=== PATIENT | female | born 1940 | race Caucasian/White ===

== ENCOUNTER 2017-04-15 13:43 | Inpatient (IN) | payer MEDICARE ==
[~2017-04-15] VITALS: Ht 167.6 cm; Wt 81.2 kg
--- NOTE | ~2017-04-15 | S ---
[facility] [place] [address] SURGICAL PATH RPT PROCEDURE Name: NANI CHO Room #: 436-P DIS IN M.R.#: [id number] Admission: 04/15/17 Date of : 42 Discharge: 04/18/17 Report #: [id number] Path Case #: [id number] PATHOLOGY REPORT COLLECTION DATE: 04/18/2017 RECEIVED DATE: 04/18/2017 SUBMITTING PHYS: Dr. Praveen Tyler OTHER PHYS: Dr. Dali Sevilla SPECIMEN(S) RECEIVED: A.Bx colitis descending colon B.Bx rectum colitis * * * * * * * * * * * * FINAL DIAGNOSIS: A. Large intestinal mucosa, colitis descending colon, endoscopic biopsy: - Moderate active colitis in all fragments sampled. - Negative for dysplasia or malignancy. B. Large intestinal mucosa, rectum colitis, endoscopic biopsy: - Moderate active colitis in all fragments sampled. - Negative for dysplasia or malignancy. COMMENT: Examination shows a markedly expanded lamina propria with surface epithelial inflammation, as well as cryptitis. Viral inclusions, parasitic organisms, or granulomata are not identified. There are no architectural abnormalities present as well. The differential diagnosis includes inflammatory bowel disease, especially ulcerative colitis, as well as acute diverticulitis. Please correlate clinically and follow up as indicated. (IUV:mml; 04/19/2017) PATHOLOGIST: Neela Sosa M.D. REPORT ELECTRONICALLY SIGNED BY: Neela Sosa M.D. DATE/TIME: 04/19/2017 16:59 * * * * * * * * * * * * GROSS PATHOLOGY: A. Received in formalin labeled "LOURDES Alvarado colitis descending colon," are 3 segments of loya soft tissue measuring 1.0 x 0.5 x 0.3 cm in aggregate dimensions and ranging from 0.3 to 0.4 cm in maximum dimension. The specimen is submitted entirely in cassette A1. B. Received in formalin labeled "LOURDES Alvarado rectum colitis," are 4 segments of loya soft tissue measuring 1.3 x 0.6 x 0.[address] [address] SURGICAL PATH RPT PROCEDURE Name: NANI CHO Room #: 436-P [facility] IN [facility].#: [id number] Admission: 04/15/17 Date of : 42 Discharge: 04/18/17 Report #: [id number] Path Case #: [id number] aggregate dimensions and ranging from 0.3 to 0.5 cm in maximum dimension. The specimen is submitted entirely in cassette B1. (TSD; 04/18/2017) CLINICAL HISTORY: Pre-OP DX: Colitis, abdominal pain Post-OP DX: Colitis INITIAL CPT CODE(S): A; 22516 B; 14022 Professional services performed by [facility] at [address] , [place] [address] Technical services performed by [facility] at [address] [place] [address], [address], [place] [address]. [facility] [address] [address] PHONE: [phone] DIRECTOR: Helio Conklin M.D. * * * END OF REPORT * * *
--- NOTE | ~2017-04-15 | P ---
[facility] [place] [address] PROCEDURE REPORT Name: NANI CHO Room #: 436-P [facility].#: [id number] Admission: 04/15/17 Attend Phys: Chaparro Dalal MD Discharge: 04/18/17 Date of : 42 Report #: [id number] THIS REPORT FOR: //name// CC: Chaparro Sevilla MD DATE OF SERVICE: 04/18/2017 PROCEDURE PERFORMED: Flexible sigmoidoscopy with biopsies. HISTORY OF PRESENT ILLNESS: The patient is a 76-year-old female who was admitted on 04/15/2017 for abdominal pain and diarrhea. A CT scan of the abdomen and pelvis was performed on admission, which showed a moderate amount of stool in the proximal colon. Diffuse moderate edema involving the distal transverse colon, splenic flexure, descending colon and entire sigmoid colon. The appearance suggested diffuse colitis. Stool studies have been obtained and are pending at this time. The patient is on antibiotics. DESCRIPTION OF PROCEDURE: The risks and benefits of the procedure were explained to the patient, those risks including but not limited to bleeding, perforation, the risk of sedation. She understood these risks and gave informed consent. Sedation was given using propofol per anesthesia. Next, a digital rectal exam was initially performed, which was normal. Next using a standard Fujinon colonoscope, the scope was placed in the patient's anus and advanced under direct vision to the descending colon area at 90 cm, at which point a large amount of solid stool was noted. I was unable to pass the scope beyond this point because of the poor prep. The scope was then slowly withdrawn. There was a mild colitis noted in the descending colon. Biopsies were obtained. No evidence of ulcerations or bleeding. A few scattered diverticula were noted in the sigmoid colon, also a mild colitis in the rectum. Biopsies obtained. The scope was then withdrawn and the procedure terminated. The patient tolerated the procedure well. IMPRESSION: 1. Colitis involving the left colon. Prep was poor above the descending colon, unable to advance the scope into the transverse colon due to poor prep. 2. Sigmoid diverticulosis. RECOMMENDATIONS: Await biopsy and stools studies. [facility] [address] [place] [address] PROCEDURE REPORT Name: NANI CHO Room #: 436-P [facility] IN M.R.#: [id number] Admission: 04/15/17 Attend Phys: Chaparro Dalal MD Discharge: 04/18/17 Date of : 42 Report #: [id number] Thank you for allowing me to participate in her care. <ELECTRONICALLY SIGNED> By: Praveen Tyler MD 04/22/17 0818 1220 1652 Praveen Tyler MD /nt
[2017-04-15 13:44] VITALS: BP 147/78
[2017-04-15 14:17] LABS: HEMATOCRIT 36.4 % (37.0-47.0); HEMOGLOBIN 11.9 gm/dL (12.0-15.0); MCH 28.4 pg (26.0-34.0); MCHC 32.8 g/dL (28.0-37.0); MCV 86.7 fL (80.0-100.0); PLATELET COUNT 323 thou/uL (150-400); RBC 4.19 mil/uL (4.20-5.00); WBC 18.2 thou/uL (4.0-11.0)
[2017-04-15 14:18] LABS: MANUAL DIFF YES
[2017-04-15 14:25] LABS: CALCIUM 9.6 mg/dL (8.5-10.1); CREATININE 0.5 mg/dL (0.6-1.0)
[2017-04-15 14:30] LABS: ALBUMIN 3.6 g/dL (3.4-5.0); TOTAL BILIRUBIN 0.4 mg/dL (<0.1-1.0); TOTAL PROTEIN 6.9 g/dL (6.4-8.2)
[2017-04-15 14:49] LABS: ABSOLUTE NEUTROPHILS 15.1 thou/uL (1.4-8.2); TOTAL CELL COUNT 100
[2017-04-15 14:51] LABS: URINE BILIRUBIN NEGATIVE (Negative); URINE BLOOD NEGATIVE (Negative); URINE COLOR YELLOW; URINE GLUCOSE-RANDOM* NEGATIVE (Negative); URINE KETONES NEGATIVE (Negative); URINE LEUKOCYTES-REFLEX TRACE (Negative); URINE PROTEIN (DIPSTICK) NEGATIVE (Negative); URINE SPECIFIC GRAVITY <= 1.005 (1.003-1.035); URINE UROBILINOGEN 0.2 E.U./dl (0.2-1.0)
[2017-04-15 17:41] VITALS: BP 149/72
[2017-04-15 18:42] VITALS: BP 142/67
[2017-04-15 20:12] VITALS: BP 128/71
[2017-04-16 03:20] VITALS: BP 121/56
[2017-04-16 03:56] LABS: HEMATOCRIT 33.7 % (37.0-47.0); HEMOGLOBIN 11.1 gm/dL (12.0-15.0); MCH 28.7 pg (26.0-34.0); MCHC 32.9 g/dL (28.0-37.0); MCV 87.1 fL (80.0-100.0); RBC 3.87 mil/uL (4.20-5.00); RDW 16.3 % (10.5-14.5); WBC 13.1 thou/uL (4.0-11.0)
[2017-04-16 04:09] LABS: CALCIUM 8.8 mg/dL (8.5-10.1); CREATININE 0.5 mg/dL (0.6-1.0); POTASSIUM 3.9 mmol/L (3.5-5.1)
[2017-04-16 08:00] VITALS: BP 118/42
[2017-04-16 16:00] VITALS: BP 117/60
[2017-04-16 19:46] VITALS: BP 118/54
[2017-04-17 03:24] VITALS: BP 130/82
[2017-04-17 03:43] LABS: ABSOLUTE NEUTROPHILS 5.6 thou/uL (1.4-8.2); BASOPHILS 0.5 % (0.0-2.0); EOSINOPHILS 4.3 % (0.0-3.0); HEMATOCRIT 30.9 % (37.0-47.0); HEMOGLOBIN 10.1 gm/dL (12.0-15.0); LYMPHOCYTES 14.8 % (24.0-44.0); MANUAL DIFF NO; MCH 28.5 pg (26.0-34.0); MCHC 32.7 g/dL (28.0-37.0); MCV 87.2 fL (80.0-100.0); MONOCYTES 11.5 % (1.0-8.0); PLATELET COUNT 252 thou/uL (150-400); POLYS 68.9 % (36.0-66.0); RBC 3.55 mil/uL (4.20-5.00); RDW 16.2 % (10.5-14.5); WBC 8.2 thou/uL (4.0-11.0)
[2017-04-17 03:56] LABS: CALCIUM 8.5 mg/dL (8.5-10.1); CREATININE 0.4 mg/dL (0.6-1.0); POTASSIUM 3.7 mmol/L (3.5-5.1)
[2017-04-17 07:23] VITALS: BP 156/68
[2017-04-17 08:00] VITALS: BP 156/68
[2017-04-17 16:00] VITALS: BP 137/72
[2017-04-17 21:20] VITALS: BP 148/76
[2017-04-18 05:07] LABS: ABSOLUTE NEUTROPHILS 6.2 thou/uL (1.4-8.2); BASOPHILS 0.8 % (0.0-2.0); EOSINOPHILS 4.6 % (0.0-3.0); HEMATOCRIT 33.2 % (37.0-47.0); HEMOGLOBIN 10.8 gm/dL (12.0-15.0); LYMPHOCYTES 13.5 % (24.0-44.0); MCH 28.4 pg (26.0-34.0); MCHC 32.4 g/dL (28.0-37.0); MCV 87.8 fL (80.0-100.0); MONOCYTES 10.9 % (1.0-8.0); PLATELET COUNT 262 thou/uL (150-400); POLYS 70.2 % (36.0-66.0); RBC 3.79 mil/uL (4.20-5.00); WBC 8.8 thou/uL (4.0-11.0)
[2017-04-18 05:08] VITALS: BP 138/74
[2017-04-18 05:10] LABS: CALCIUM 9.1 mg/dL (8.5-10.1); CREATININE 0.4 mg/dL (0.6-1.0); POTASSIUM 3.8 mmol/L (3.5-5.1)
[2017-04-18 05:11] LABS: MANUAL DIFF NO
[2017-04-18 08:00] VITALS: BP 125/84
[2017-04-18] MEDS ORDERED: FLAGYL500 MG PO (13:54)
[2017-04-18] MEDS ORDERED: CIPRO500 MG PO (13:54)
[2017-04-18 15:10] VITALS: BP 125/84
== END 2017-04-18 16:45 | disposition home or self-care (01) | DRG 871 ==
LOC: ER 13:43 → EROBS 16:46 → 4S 16:46 → ENTRNSPT 04-18 16:17 → 4S 04-18 16:45
PROVIDERS: Hospitalist; Internal Medicine Endocrinology, Diabetes & Metabolism; Physician Assistant
PROC: 0DBM8ZX Excision of Descending Colon, Via Natural or Artificial Opening Endoscopic, Diagnostic (ICD-10-PCS; principal; 2017-04-18)
PROC: 0DBP8ZX Excision of Rectum, Via Natural or Artificial Opening Endoscopic, Diagnostic (ICD-10-PCS; principal; 2017-04-18)
DX: A41.9 Sepsis, unspecified organism (principal); K57.31 Diverticulosis of large intestine without perforation or abscess with bleeding; K52.9 Noninfective gastroenteritis and colitis, unspecified; I10 Essential (primary) hypertension; E78.00 Pure hypercholesterolemia, unspecified; I48.91 Unspecified atrial fibrillation; J44.9 Chronic obstructive pulmonary disease, unspecified; E78.5 Hyperlipidemia, unspecified
CPT/HCPCS: 10100; 62110; 62900

== ENCOUNTER 2020-08-18 19:27 | Inpatient (IN) | payer MEDICARE ==
[~2020-08-18] VITALS: Ht 167.6 cm; Wt 73.7 kg
[~2020-08-18 19:27] MED LIST: CIPRO500 MG PO; FLAGYL500 MG PO
[2020-08-18 19:33] VITALS: BP 155/82
[2020-08-18 20:07] LABS: URINE BILIRUBIN NEGATIVE (Negative); URINE BLOOD TRACE (Negative); URINE COLOR YELLOW; URINE GLUCOSE-RANDOM* NEGATIVE (Negative); URINE KETONES NEGATIVE (Negative); URINE PROTEIN (DIPSTICK) 2+ (Negative); URINE SPECIFIC GRAVITY 1.025 (1.005-1.035)
[2020-08-18 20:11] LABS: URINE CLARITY CLOUDY; URINE LEUKOCYTES-REFLEX 1+ (Negative); URINE NITRITE-REFLEX POSITIVE (Negative)
[2020-08-18 20:15] LABS: ABSOLUTE NEUTROPHILS 4.6 thou/uL (1.4-8.2); BASOPHILS 0.8 % (0.0-2.0); EOSINOPHILS 1.7 % (0.0-3.0); HEMATOCRIT 42.9 % (37.0-47.0); HEMOGLOBIN 14.2 gm/dL (12.0-15.0); LYMPHOCYTES 36.3 % (24.0-44.0); MCH 29.6 pg (26.0-34.0); MCV 89.6 fL (80.0-100.0); MONOCYTES 10.7 % (1.0-8.0); PLATELET COUNT 264 thou/uL (150-400); POLYS 50.5 % (36.0-66.0); RBC 4.78 mil/uL (4.20-5.00); RDW 14.5 % (10.5-14.5); WBC 9.2 thou/uL (4.0-11.0)
[2020-08-18 20:18] LABS: BACTERIA-REFLEX >30 Many /HPF (None Seen); CASTS None Seen /LPF (None Seen); SQUAMOUS 0-3 Few /LPF (0-3); URINE RBC 0-2 Rare /HPF (0-2); URINE WBC-REFLEX 6-15 Few /HPF (0-5)
[2020-08-18 20:19] LABS: AMORPHOUS PHOSPHATES Many /LPF (None Seen)
[2020-08-18 20:20] LABS: ANION GAP 6 mmol/L (7-16); BUN 13 mg/dL (7-18); CALCIUM 9.2 mg/dL (8.5-10.1); CHLORIDE 95 mmol/L (98-107); CO2 31 mmol/L (21-32); CREATININE 0.5 mg/dL (0.6-1.0); GLUCOSE 111 mg/dL (74-106); POTASSIUM 3.6 mmol/L (3.5-5.1); SODIUM 132 mmol/L (136-145)
[2020-08-18 20:30] LABS: DIRECT BILIRUBIN 0.1 mg/dL (<0.1-0.2); SGOT 20 U/L (15-37); SGPT 15 U/L (14-59); TOTAL BILIRUBIN 0.6 mg/dL (0.2-1.0); TOTAL PROTEIN 7.4 g/dL (6.4-8.2); TROPONIN-I <0.06 ng/mL (<0.06)
[2020-08-18] MEDS ORDERED: LISINOPRIL5 MG PO (20:41)
[2020-08-18] MEDS ORDERED: NEURONTIN100 MG PO (20:42)
[2020-08-18] MEDS ORDERED: LIPITOR10 MG PO (20:42)
[2020-08-18] MEDS ORDERED: CARDIZEM LA240 M1 PO (20:43)
[2020-08-18] MEDS ORDERED: ELIQUIS5 MG PO (20:43)
[2020-08-18] MEDS ORDERED: PROZAC10 M1 PO (20:45)
[2020-08-18] MEDS ORDERED: SYMBICORT80 MCG/4.1 INH (20:46)
[2020-08-18 21:53] LABS: HCO3 28.4 mmol/L (22.0-26.0); PCO2 46.5 mmHg (35.0-45.0); PO2 85.6 mmHg (80.0-100.0); pH 7.404 (7.360-7.450); sO2 96.4 % (92.0-98.0)
[2020-08-18 23:01] VITALS: BP 152/83
[2020-08-18 23:27] VITALS: BP 152/83
[2020-08-19 00:03] VITALS: BP 125/60
--- NOTE | 2020-08-19 01:07 | NUR ---
ASSUME CARE OF PT FROM ED AT 2340HRS. PT AOX3 AND CAN BE CONFUSED/FORGETFUL AT TIMES. FALL PRECAUTION IN PLACE. PT WAS ORIENTED TO THE UNIT AND HER ROOM. PT WAS ABLE TO ANSWER MOST ADMISSION RELATED QUESTIONS. ASSESSMENT CHARTED. PT IS A-FIB ON TELE. 2L O2 VIA NC CONTINUED. PT IS TIRED AND DROWSY. VSS AND NO S/S OF ACUTE DISTRESS. WILL CONTINUE TO MONITOR FOR CHANGES.
[2020-08-19 02:40] VITALS: BP 165/96
[2020-08-19 04:57] LABS: ABSOLUTE NEUTROPHILS 2.6 thou/uL (1.4-8.2); BASOPHILS 0.4 % (0.0-2.0); HEMATOCRIT 42.8 % (37.0-47.0); HEMOGLOBIN 14.2 gm/dL (12.0-15.0); LYMPHOCYTES 15.7 % (24.0-44.0); MCH 29.7 pg (26.0-34.0); MCHC 33.1 g/dL (28.0-37.0); MCV 89.8 fL (80.0-100.0); MONOCYTES 1.6 % (1.0-8.0); PLATELET COUNT 273 thou/uL (150-400); POLYS 82.3 % (36.0-66.0); RBC 4.77 mil/uL (4.20-5.00); RDW 14.4 % (10.5-14.5); WBC 3.2 thou/uL (4.0-11.0)
[2020-08-19 05:12] LABS: ALBUMIN 3.7 g/dL (3.4-5.0); CALCIUM 9.1 mg/dL (8.5-10.1); CREATININE 0.6 mg/dL (0.6-1.0); POTASSIUM 4.1 mmol/L (3.5-5.1); TOTAL BILIRUBIN 0.4 mg/dL (0.2-1.0); TOTAL PROTEIN 7.4 g/dL (6.4-8.2)
[2020-08-19 05:31] VITALS: BP 154/61
--- NOTE | 2020-08-19 07:03 | EKG ---
[place] [address] [facility] [place] [address] ELECTROCARDIOGRAM REPORT Name: NANI CHO Room #: 451-P ADM IN M.R.#: [id number] Admission: 08/18/20 Attend Phys: Maria M Doan Discharge: Date of : 42 Report #: [id number] [facility] ED Test Date: 2020-08-18 Test Time: 19:35:37 Pat Name: NANI CHO Department: Room: [facility] Gender: F Systems Spec: kanwal : 1940 Requested By: Nehal Ruiz Order Number: [id number] MD: Barrington Madison Measurements Intervals [place] Rate: 103 P: MS: QRS: 72 QRSD: 94 T: 25 QT: 357 QTc: 468 Interpretive Statements Atrial fibrillation Consider left ventricular hypertrophy Nonspecific T abnormalities, inferior leads No previous ECG available for comparison Electronically Signed On 08-19-2020 7:03:25 CDT by Barrington Madison [email or web address] <ELECTRONICALLY SIGNED> By: Barrington Madison MD, LOCATED WITHIN [facility] 08/19/20 0703 [id number] Barrington Madison MD, FACC /EPI
[2020-08-19 09:11] VITALS: BP 156/89
--- NOTE | 2020-08-19 09:44 | NUR ---
Received awake on bed. Due medications given as prescribed, able to swallow meds w/o difficulty. On O2 at 2lpm
--- NOTE | 2020-08-19 09:47 | NUR ---
Received awake on bed. Due medications given as prescribed, able to swallow meds w/o difficulty. On O2 a 2lpm via nasal cannula. On telemetry; no complains and signs of chest pain, crushing sensation and heaviness; with episodes of tachycardia- AM scheduled meds given as prescribed. On regular diet- tolerating well; no nausea, no vomiting and no abdominal pain noted. Contient of bowel and bladder, able to use bedside commode- assisted; Falls bundle in place- with episodes of stress incontinence as well. With SL at R hand. Pt's son called this AM, update given. To continue monitoring patient.
--- NOTE | 2020-08-19 11:59 | NUR ---
PT ADMITTED RELATED TO UTI, COPD EXACERBATION, ALTERED MENTAL STATUS. CM REVIEWED CHART AND SPOKE WITH CARE TEAM. CM MET WITH PT AT BEDSIDE THIS DAY. PT APPEARED TO BE A&O X4. CM ROLE INTRODUCED. PT INDICATED SHE LIVES IN A HOUSE ALONE WITH 5 STEPS TO ENTER AND NONE INSIDE. PT INDICATED SHE USES A 4WW WITH A SEAT TO ASSIST WITH MOBILITY AT HOME. PT INDICATED SHE HAS HH AT HOME BUT CAN'T RECALL PROVIDER. PT INDICATED SHE PLANS TO RETURN HOME ONCE MEDICALLY STABLE. PT INDICATED SHE HAD BEEN SKILLED IN [facility] IN THE PAST. CM CALLED PT'S DTR TIKA . SHE INDICATED THAT SHE RESIDES NEXT DOOR TO PT. SHE STATED THAT SHE IS IN THE PROCESS OF MOVING IN WITH HER. SHE STATED THAT SHE HELPS WITH SET UP FOR BATHING PT DOESN'T GET IN TUB AND SHE ASSISTS WITH MEAL PREP AND COOKING. DTR INDICATED SHE HAD HH SERVICES THROUGH [facility] AND THAT PT HAD BEEN SKILLED AT [facility] IN THE PAST. DTR INDICATED FEARS COVID BUT IS RECEPTIVE TO SHORT TERM SKILLED STAY IF RECOMMENDED ONCE MEDICALLY STABLE. DTR INDICATED SHE WOULD NEED 1 HOUR NOTICE OF DC TO HOME SO HER BROTHER COULD ASSIST WITH TRANSPORT HOME. CM FOLLOWING REGARDING DC PLANNING.
--- NOTE | 2020-08-19 12:40 | EKG ---
[place] [address] [facility] [place] [address] ELECTROCARDIOGRAM REPORT Name: NANI CHO Room #: 451- ADM IN M.R.#: [id number] Admission: 08/18/20 Attend Phys: Maria M Doan Discharge: Date of : 42 Report #: [id number] [facility] ED Test Date: 2020-08-18 Test Time: 22:03:44 Pat Name: NANI CHO Department: Room: [facility] Gender: F Call Circuit Worker: XAVIER : 1940 Requested By: Nehal Ruiz Order Number: [id number] MD: Harris Blanchard Measurements Intervals [place] Rate: 111 P: MD: QRS: 66 QRSD: 90 T: 125 QT: 343 QTc: 466 Interpretive Statements Atrial fibrillation Nonspecific ST and T wave abnormality Compared to ECG 08/18/2020 19:35:37 Nonspecific change in the ST and T wave segments Electronically Signed On 08-19-2020 12:40:16 CDT by Harris Blanchard [email or web address] <ELECTRONICALLY SIGNED> By: Harris Blanchard MD, [facility] 08/19/20 1240 02 02 Harris Blanchard MD, [facility] /EPI
[2020-08-19 16:03] VITALS: BP 132/72
[2020-08-19 20:48] VITALS: BP 132/73
--- NOTE | 2020-08-20 02:01 | NUR ---
ASSUMED CARE OF PT AT SHIFT CHANGE. PT AOX3 AND LETS NEEDS BE KNOWN. FALL PRECAUTION IN PLACE. 2L O2 VIA NC CONTINUED. PT HAS A PRODUCTIVE COUGH. PT HAS SOA WITH ACTIVITY. EXTERNAL FEMALE CATH IN PLACE. ASSESSMENT CHARTED. PT WAS ABLE TO GET COMFORTABLE AND SLEEP PART OF THE SHIFT. LOPRESSOR IV CONTINUED Q6H. VSS AND NO S/S OF ACUTE DISTRESS. WILL CONTINUE TO MONITOR FOR CHANGES.
[2020-08-20 07:35] VITALS: BP 132/88
--- NOTE | 2020-08-20 09:57 | NUR ---
Received awake on bed, Due medications given as prescribed, able to swallow meds w/o difficulty. On O2 at 2lpm via nasal cannula, on regular breathing treatments; on COPD exacerbation. On telemetry; no complains and sign of chest pain, crushing sensation and heaviness. On regular diet- tolerating well; no nausea, no vomiting and no abdominal. With on and off incontinence; may have stress incontinence at times- with purewick in place- output measured and recorded accordingly; checked frequently and changed as needed. With SL at L FA. With PT/OT evaluation. Falls bundle in place. Pt seen and examined by Dr Doan this AM- informed him re: tachycardia- currently on IV Metoprolol; complained of hyperacidity- a/w orders for medication. To continue monitoring patient.
--- NOTE | 2020-08-20 13:52 | NUR ---
CM FOLLOWED UP WITH PT THIS AFTERNOON. CARE TEAM INDICATED THAT PT MAY BENEFIT FROM SHORT TERM POST ACUTE CARE STAY. PT IS AGREEABLE AND WANTS REFERRAL SENT TO [facility] FOR REVIEW FOR POSSIBLE ADMISSION. COVID TEST COLLECTED. REFERRAL TO BE SENT ANTICIPATING POSSIBLE DC TOMORROW. CM FOLLOWING REGARDING DC PLANNING.
[2020-08-20 14:39] VITALS: BP 127/69
--- NOTE | 2020-08-20 15:21 | NUR ---
FAXED REFERRAL TO [facility] SPOKE WITH DORINA IN ADM SHE RECEIVED REFERRAL AND CAN ACCEPT CLINICALLY WILL NEED OT NOTES TO SUBMIT FOR AUTH. DC TAPE CONTROL SKIN OR SPAR MILL OPERATOR TO FOLLOW.
[2020-08-20 19:40] VITALS: BP 101/72
[2020-08-20 21:05] VITALS: BP 107/69
[2020-08-21 04:25] VITALS: BP 116/49
--- NOTE | 2020-08-21 06:03 | NUR ---
PATIENT AOX2 CONFUSED AND FORGETFUL. PATIENT DENIED PAIN OR DISCOMFORT.PATIENT LUNGS ARE COARSE THIS AM. CALLED SCHOOL CUSTODIAN NO NEW ORDERS. PATIENT ON 2L OF OXYGEN NO SOA OR DISTRESS NOTED. PATIENT INCONTIENT AND HAS EXTERNAL CATHETER PERICARE AND BARRIER CREAM APPLIED NEEDED. PATIENT IN BED ASLEEP AT THIS TIME BREATHING REGULAR AND UNLABOURED.
[2020-08-21 07:12] VITALS: BP 135/66
--- NOTE | 2020-08-21 09:09 | NUR ---
Nutrition: RD received consult related to food preferences, poor intake. Pt admitted with COPD exacerbation, UTI. During visit RD observed pt had consumed 100% of breakfast. Noted 2 meal refusals past 48 hrs otherwise po has been 50-80% of meals. No weight loss reported. pt did not provide specific food preferences but allowed RD to help with menu changes today to assure she likes her meals. Likes to drink ensure at home so will send daily. Noted possible D/C today to post acute care. Place as low risk with interventions in place.
[2020-08-21] MEDS ORDERED: CEFUROXIME250 MG PO (09:40)
--- NOTE | 2020-08-21 12:23 | NUR ---
CARE TEAM INDICATED THAT PT IS MEDICALLY STABLE TO DC THIS DAY TO SKILLED. CLINICAL UPDATES SENT TO [facility]. THEY CALLED AND INDICATED THAT THEY HAVE AUTH BUT THAT PT HAS BALANCE OF $266.16 FROM LAST STAY. THEY STATED THAT THEY NEEDED THAT PAID AND A CREDIT CARE CON FILE FOR COPAYS PRIOR TO ACCEPTING PT. CM NOTIFIED PT AND SON WHO WAS AT BEDSIDE THIS DAY. SON INDICATED HE WOULD PAY BALANCE. CM CALLED AND PROVIDED DORINA IN ADMISSIONS HIS PHONE NUMBER TO REACH OUT FOR PAYMENT. CM TO FOLLOW UP WITH FACILITY.
[2020-08-21 15:20] VITALS: BP 108/50
--- NOTE | 2020-08-21 16:08 | NUR ---
WAITING FOR INSURANCE AUTHORIZATION FOR PATIENT TO DISCHARGE TO SNF. 2L NC, LUNGS CLEAR. ORIENTED X 3 AND MOVES ALL EXTREMITIES. NO COMPLAINTS OR CONCERNS VOICED THIS SHIFT
[2020-08-21 19:30] VITALS: BP 114/53
[2020-08-22 07:28] VITALS: BP 120/54
--- NOTE | 2020-08-22 11:35 | NUR ---
STILL AWAITING INSURANCE AUTH FOR PT TO DC TO SKILLED AT [facility]. THERAPY UPDATES SENT TO FACILITY FOR REVIEW.
[2020-08-22 12:00] VITALS: BP 132/82
--- NOTE | 2020-08-22 13:56 | NUR ---
FAXED CLINICAL UPDATE TO [facility] SPOKE WITH RAMON IN ADM SHE RECEIVED UPDATE AND SUBMITTED UPDATE FOR AUTH.
[2020-08-22 15:52] VITALS: BP 136/74
--- NOTE | 2020-08-22 17:56 | NUR ---
RECEIVED CALL FROM DORINA IN ADM AT [facility] SHE JUST RECEIVED AUTH AND CAN ACCEPT PT TOMORROW FOR ADM. FAXED DC ORDERS/SUMMARY TO FACILITY TODAY SPOKE WITH DORINA SHE RECEIVED DC ORDERS. TRANSPORTATION ARRANGED WITH [facility] FOR [address]. SPOKE WITH PT'S DTR TIKA AND SHE IS AGREEABLLE WITH DC PLAN AND TIME OF TRANSPORT. UNIT NOTIFIED AND CHART COPY PER US. RN TO CALL REPORT TO [phone].
[2020-08-22 19:30] VITALS: BP 126/83
[2020-08-23 07:13] VITALS: BP 133/67
[2020-08-23 09:30] VITALS: BP 133/67
--- NOTE | 2020-08-23 11:12 | NUR ---
Assumed pt care at 7am.Assessment completed.vss.Pt in bed very anxious about dc to snf today.Dc summary compile and reviewed with pt.Lockstitch Coat Joiner assisted pt with with packing .Report batsheva Masterson at [facility]. Saline lock dc. Pt dc per van at 1100 in stable condition.
== END 2020-08-23 11:00 | DRG 190 ==
LOC: ER 19:27 → 4W 22:43 → EROBS 22:43 → 4W 23:28
PROVIDERS: Emergency Medicine; Nurse Practitioner; ADMIT Hospitalist; ATTEND Hospitalist
DX: J44.1 Chronic obstructive pulmonary disease with (acute) exacerbation (principal); G93.41 Metabolic encephalopathy; R65.11 Systemic inflammatory response syndrome (SIRS) of non-infectious origin with acute organ dysfunction; J96.01 Acute respiratory failure with hypoxia; N39.0 Urinary tract infection, site not specified; I48.91 Unspecified atrial fibrillation; E78.5 Hyperlipidemia, unspecified; I10 Essential (primary) hypertension; F03.90 Unspecified dementia, unspecified severity, without behavioral disturbance, psychotic disturbance, mood disturbance, and anxiety; E78.00 Pure hypercholesterolemia, unspecified; Z60.2 Problems related to living alone; F17.210 Nicotine dependence, cigarettes, uncomplicated; R53.81 Other malaise; Z20.822 Contact with and (suspected) exposure to COVID-19; F32.9 Major depressive disorder, single episode, unspecified; Z79.899 Other long term (current) drug therapy
CPT/HCPCS: 10045